=== PATIENT | male | born 1950 | race Caucasian/White ===

== ENCOUNTER → 2020-01-29 | Outpatient (CLI) | payer MEDICARE, OTHER ==
[~2020-01-29] MED LIST: CIPR-17 PO; FINA5TAB6 PO; HYOS0.1216 PO; LISI1TAB PO; LOVA20TA2 PO; PHEN200T27 PO; TERA5CAP10 PO; TMSL.4C PO
--- NOTE | 2020-01-29 11:53 | Diagnostic Imaging Report ---
PROCEDURE: CT abdomen and pelvis without contrast. TECHNIQUE: Multiple contiguous axial images were obtained through the abdomen and pelvis without the use of intravenous contrast. Auto Exposure Controls were utilized during the CT exam to meet ALARA standards for radiation dose reduction. INDICATION: Gross hematuria one week ago. Patient does have history of bladder cancer. COMPARISON: No prior studies are available for comparison. FINDINGS: Lung bases are clear. Liver is unremarkable. Gallbladder is unremarkable. There is no biliary ductal dilatation. The pancreas and spleen are unremarkable. There does appear to be a large duodenal diverticulum in the region of the second and third portion of the duodenum. No discrete adrenal mass is identified. Kidneys are unremarkable. No calculi are seen. There is no hydronephrosis. Aorta is heavily calcified but non-aneurysmal. 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 Bowel loops are normal caliber. Appendix is unremarkable. There is diverticulosis of the sigmoid and descending colon but no evidence of acute diverticulitis. There is wall thickening of the anterior aspect of the bladder. The prostate gland is enlarged. There is a fat-containing left inguinal hernia. Bony structures are nonacute. IMPRESSION: 1. Uncomplicated diverticulosis. 2. Bladder wall thickening. While this could be owing to cystitis, other etiologies cannot be entirely excluded and cystoscopy may be indicated. 3. Prostatomegaly. 4. Fat-containing left inguinal hernia. Dictated by: Dictated on workstation # [id number]
== END ==
LOC: RAD FS 10:18
PROVIDERS: ATTEND Urology
DX: K57.30 Diverticulosis of large intestine without perforation or abscess without bleeding (principal); K40.90 Unilateral inguinal hernia, without obstruction or gangrene, not specified as recurrent; N32.89 Other specified disorders of bladder; N40.1 Benign prostatic hyperplasia with lower urinary tract symptoms; Z85.51 Personal history of malignant neoplasm of bladder
CPT/HCPCS: 74176

== ENCOUNTER → 2021-03-28 | Outpatient (CLI) | payer MEDICARE ==
[2021-03-28 17:56] LABS: HEMATOCRIT 44 % (40-54); MEAN CORPUSCULAR HEMOGLOBIN 30 pg (25-34); MEAN CORPUSCULAR HGB CONC 34 g/dL (32-36); MEAN CORPUSCULAR VOLUME 88 fL (80-99); MEAN PLATELET VOLUME 10.7 fL (9.0-12.2); PLATELET COUNT 162 10^3/uL (130-400); WHITE BLOOD COUNT 9.1 10^3/uL (4.3-11.0)
[2021-03-28 18:05] LABS: POTASSIUM 3.7 MMOL/L (3.6-5.0)
[2021-03-28 18:06] LABS: ALBUMIN 4.2 GM/DL (3.2-4.5); BILIRUBIN,TOTAL 0.3 MG/DL (0.1-1.0); CALCIUM 9.8 MG/DL (8.5-10.1); CREATININE SERUM 0.99 MG/DL (0.60-1.30); TOTAL PROTEIN 6.7 GM/DL (6.4-8.2)
== END ==
LOC: LAB FS 15:53
PROVIDERS: ATTEND Urology
DX: N40.1 Benign prostatic hyperplasia with lower urinary tract symptoms (principal); E29.1 Testicular hypofunction; Z85.51 Personal history of malignant neoplasm of bladder
CPT/HCPCS: 36415; 80053; 84153; 84403; 85027

== ENCOUNTER 2021-05-08 09:13 | Emergency (ER) | payer MEDICARE ==
[~2021-05-08] VITALS: Ht 182 cm; Wt 100.0 kg
--- NOTE | 2021-05-08 09:24 | ED Cough/URI ---
General Stated Complaint: SOB,LIGHTHEADED,COVID + History of Present Illness Date Seen by Provider: May 08, 2021 Time Seen by Provider: 09:19 Initial Comments 70-year-old male presents presents because he does not feel well. Patient reports that symptoms started around 2 weeks ago. The he has some generalized malaise and just does not feel like he wants to eat. He tested positive for Covid about 6 days ago. He does report a history of COPD and has been using his inhaler about every 4 hours. Patient has a minor cough. Patient denies any vomiting. Allergies and Home Medications Allergies Coded Allergies: No Known Drug Allergies (Unverified , 07/31/13) Patient Home Medication List Home Medication List Reviewed: Yes Azithromycin (Azithromycin) 250 Mg Tablet, 250 MG PO UD Prescribed by: MIGUEL DE LA ROSA on 05/08/21 1033 Ciprofloxacin (Cipro Xr 500 Mg Tablet) 500 Mg Tbmp.24hr, 1 TAB PO BID Prescribed by: ZE REESE on 08/04/13 1149 Finasteride (Finasteride) 5 Mg Tablet, 5 MG PO DAILY, (Reported) Entered as Reported by: GERARDO CORONA on 07/31/13 1534 Hctz/Lisinopril (Lisinopril-Hctz 20-12.5 Mg Tab) 1 Each Tablet, 1 TAB PO HS, (Reported) Entered as Reported by: GERARDO CORONA on 07/31/13 1534 Hyoscyamine Sulfate (Levsin 0.125 Mg Tab) 0.125 Mg Tab, 1-2 EACH PO Q4HR PRN Prescribed by: ZE REESE on 08/04/13 1149 Lovastatin (Lovastatin 20 Mg) 20 Mg Tablet, 20 MG PO HS, (Reported) Entered as Reported by: GERARDO CORONA on 07/31/13 1534 Ondansetron (Ondansetron Odt) 4 Mg Tab.rapdis, 4 MG PO Q6H PRN for NAUSEA/VOMITING Prescribed by: MIGUEL DE LA ROSA on 05/08/21 1033 Phenazopyridine Hcl (Pyridium) 200 Mg Tablet, 1 EACH PO TID PRN Prescribed by: ZE REESE on 08/04/13 1149 Prednisone (Prednisone) 20 Mg Tab, 40 MG PO DAILY Prescribed by: MIGUEL DE LA ROSA on 05/08/21 1033 Terazosin Hcl (Hytrin 5MG) 5 Mg Capsule, 5 MG PO HS, (Reported) Entered as Reported by: GERARDO CORONA on 07/31/13 1534 Review of Systems Review of Systems Constitutional: No fever; malaise EENTM: see HPI Respiratory: cough, short of breath Cardiovascular: no symptoms reported Gastrointestinal: No abdominal pain; loss of appetite, nausea; No vomiting Genitourinary: no symptoms reported Musculoskeletal: see HPI Skin: no symptoms reported Psychiatric/Neurological: No Symptoms Reported Hematologic/Lymphatic: No Symptoms Reported Immunological/Allergic: no symptoms reported Physical Exam Vital Signs - First Documented 05/08/21 05/08/21 09:42 11:12 Temp 36.6 Pulse 86 B/P (MAP) 155/87 (109) Pulse Ox 93 O2 Delivery Room Air Capillary Refill : Height: 6'0.00" Weight: 214lbs. oz. 97.691707ew; BMI Method: General Appearance: no apparent distress Neck: full range of motion Respiratory: decreased breath sounds; No wheezing Cardiovascular: normal peripheral pulses, regular rate, rhythm Gastrointestinal: non tender, soft Neurologic/Psychiatric: alert, normal mood/affect, oriented x 3 Skin: normal color, warm/dry Lymphatic: no adenopathy Progress/Results/Core Measures Suspected Sepsis SIRS Temperature: Pulse: Respiratory Rate: Laboratory Tests 05/08/21 09:21: White Blood Count 6.3 Blood Pressure / Mean: Laboratory Tests 05/08/21 09:21: Creatinine 0.84, Platelet Count 139, Total Bilirubin 0.6 Results/Orders Lab Results Laboratory Tests Test 05/08/21 09:21 Range/Units White Blood Count 6.3 4.3-11.0 10^3/uL Red Blood Count 4.92 4.30-5.52 10^6/uL Hemoglobin 14.5 13.3-17.7 g/dL Hematocrit 41 40-54 % Mean Corpuscular Volume 83 80-99 fL Mean Corpuscular Hemoglobin 29 25-34 pg Mean Corpuscular Hemoglobin Concent 36 32-36 g/dL Red Cell Distribution Width 13.2 10.0-14.5 % Platelet Count 139 130-400 10^3/uL Mean Platelet Volume 10.8 9.0-12.2 fL Immature Granulocyte % (Auto) 1 % Neutrophils (%) (Auto) 83 H 42-75 % Lymphocytes (%) (Auto) 10 L 12-44 % Monocytes (%) (Auto) 6 0-12 % Eosinophils (%) (Auto) 0 0-10 % Basophils (%) (Auto) 0 0-10 % Neutrophils # (Auto) 5.2 1.8-7.8 X 10^3 Lymphocytes # (Auto) 0.6 L 1.0-4.0 X 10^3 Monocytes # (Auto) 0.4 0.0-1.0 X 10^3 Eosinophils # (Auto) 0.0 0.0-0.3 10^3/uL Basophils # (Auto) 0.0 0.0-0.1 10^3/uL Immature Granulocyte # (Auto) 0.1 0.0-0.1 10^3/uL Neutrophils % (Manual) 61 % Lymphocytes % (Manual) 8 % Monocytes % (Manual) 7 % Eosinophils % (Manual) 0 % Basophils % (Manual) 0 % Band Neutrophils 21 % Atypical Lymphocytes 3 % Sodium Level 126 L 135-145 MMOL/L Potassium Level 3.7 3.6-5.0 MMOL/L Chloride Level 90 L 98-107 MMOL/L Carbon Dioxide Level 26 21-32 MMOL/L Anion Gap 10 5-14 MMOL/L Blood Urea Nitrogen 18 7-18 MG/DL Creatinine 0.84 0.60-1.30 MG/DL Estimat Glomerular Filtration Rate 90 BUN/Creatinine Ratio 21 Glucose Level 122 H 70-105 MG/DL Calcium Level 8.7 8.5-10.1 MG/DL Corrected Calcium 9.1 8.5-10.1 MG/DL Total Bilirubin 0.6 0.1-1.0 MG/DL Aspartate Amino Transf (AST/SGOT) 181 H 5-34 U/L Alanine Aminotransferase (ALT/SGPT) 99 H 0-55 U/L Alkaline Phosphatase 89 40-136 U/L Total Protein 6.6 6.4-8.2 GM/DL Albumin 3.5 3.2-4.5 GM/DL My Orders Orders - DE LA ROSA,MIGUEL L DO Cbc With Automated Diff (05/08/21 09:25) Comprehensive Metabolic Panel (05/08/21 09:25) Chest 1 View Ap/Pa Only (05/08/21 09:25) Ondansetron Injection (Zofran Injectio (05/08/21 09:30) Ns Iv 1000 Ml (Sodium Chloride 0.9%) (05/08/21 09:25) Albuterol/Ipra Inhalation Soln (Duoneb I (05/08/21 09:30) Methylprednisolone Sod Succ (Solu-Medrol (05/08/21 09:25) Svn Small Volume Nebulizer (05/08/21 09:25) Manual Differential (05/08/21 09:21) Medications Given in ED Current Medications Medications Dose Ordered Sig/Josue Route Start Time Stop Time Status Last Admin Dose Admin Albuterol/ Ipratropium 3 ml ONCE ONCE INH 05/08/21 09:30 05/08/21 09:31 DC 05/08/21 09:35 3 ML Ondansetron HCl 4 mg ONCE ONCE IVP 05/08/21 09:30 05/08/21 09:31 DC 05/08/21 09:35 4 MG Vital Signs/I&O 05/08/21 05/08/21 09:42 11:12 Temp 36.6 Pulse 86 B/P (MAP) 155/87 (109) 164/74 Pulse Ox 93 O2 Delivery Room Air Room Air Capillary Refill : Progress Note : Progress Note Patient maintain his oxygen in the low to mid 90s while in the ER. Patient continues to be a pack per day smoker with COPD. He does have a slight decrease in his sodium of 126. I did give him 1 L of fluids while here in the ER. Chest x-ray shows a mild bilateral pneumonia. Due to his history of COPD and Covid I will start him with some steroid and azithromycin with COPD. Recommend he monitor his oxygen. He should return to the ER if symptoms worsen. Patient should follow-up with a primary care provider in a couple days for recheck. He is stable and discharged home Diagnostic Imaging Diagonstic Imaging: Xray Plain Films/CT/US/NM/MRI: chest Comments Date of Exam:05/08/21 CHEST 1 VIEW AP/PA ONLY CLINICAL INDICATION: Patient is Covid positive with cough and shortness of breath. EXAM: Portable chest x-ray, upright view. COMPARISON: None. FINDINGS: Lungs/pleura: There are ill-defined curvilinear and amorphous groundglass airspace opacities throughout both lungs with some sparing of both lung bases. There is no pneumothorax. There is no pleural effusion. Mediastinum: Unremarkable. Pulmonary vasculature: Unremarkable. Heart: Unremarkable. Bones/extrathoracic soft tissue: There are degenerative spurs involving the thoracic spine. IMPRESSION: There is concern for subtle bilateral lung infiltrates. Reviewed: Reviewed by Me, Reviewed/Discussed Departure Impression Primary Impression: Pneumonia due to COVID-19 virus Additional Impressions: History of COPD Hyponatremia Disposition: HOME, SELF-CARE Condition: Stable Departure-Patient Inst. Referrals: MARY ABDALLA MD (PCP/Family) Primary Care Physician Patient Instructions: COVID-19 (DC), Chronic Obstructive Pulmonary Disease (COPD) (DC) Add. Discharge Instructions: Follow-up with your primary care provider in 3 to 4 days for recheck of your symptoms Monitor your oxygen and if it consistently gets below 88% return to the ER or your primary care provider Return to the ER with any other concerns Scripts Prednisone (Prednisone) 20 Mg Tab 40 MG PO DAILY, #6 TAB 0 Refills start 05/09/21 Prov: MIGUEL DE LA ROSA DO 05/08/21 Ondansetron (Ondansetron Odt) 4 Mg Tab.rapdis 4 MG PO Q6H PRN for NAUSEA/VOMITING, #20 TAB 0 Refills Prov: MIGUEL DE LA ROSA DO 05/08/21 Azithromycin (Azithromycin) 250 Mg Tablet 250 MG PO UD, #6 TAB TAKE 2 TABLETS ON DAY ONE THEN TAKE 1 TABLET DAILY FOR FOUR MORE DAYS Prov: MIGUEL DE LA ROSA DO 05/08/21 MIGUEL DE LA ROSA DO May 08, 2021 09:23
[2021-05-08] MEDS ORDERED: NS IV 1000 ML 1,000 ML IV STA (09:25)
[2021-05-08] MEDS ORDERED: methylPREDNISolone 125 MG (Solu-MEDROL) VIAL IV STA (09:25)
[2021-05-08] MEDS ORDERED: RT-ALBUTEROL/IPRATROPIUM 3 ML (DUONEB) VIAL INH ONE (09:30)
[2021-05-08] MEDS ORDERED: ONDANSETRON 4 MG/2 ML (SDV) Z0FRAN IVP ONE (09:30)
--- NOTE | 2021-05-08 09:46 | Diagnostic Imaging Report ---
CLINICAL INDICATION: Patient is Covid positive with cough and shortness of breath. EXAM: Portable chest x-ray, upright view. COMPARISON: None. FINDINGS: Lungs/pleura: There are ill-defined curvilinear and amorphous groundglass airspace opacities throughout both lungs with some sparing of both lung bases. There is no pneumothorax. There is no pleural effusion. Mediastinum: Unremarkable. Pulmonary vasculature: Unremarkable. Heart: Unremarkable. Bones/extrathoracic soft tissue: There are degenerative spurs involving the thoracic spine. IMPRESSION: There is concern for subtle bilateral lung infiltrates. The report was faxed to Infection Control by [email or web address]@9:45 AM. Dictated by: Dictated on workstation # [id number]
[2021-05-08 09:55] LABS: HEMATOCRIT 41 % (40-54); HEMOGLOBIN 14.5 g/dL (13.3-17.7); MEAN CORPUSCULAR HEMOGLOBIN 29 pg (25-34); MEAN CORPUSCULAR HGB CONC 36 g/dL (32-36); MEAN CORPUSCULAR VOLUME 83 fL (80-99); WHITE BLOOD COUNT 6.3 10^3/uL (4.3-11.0)
[2021-05-08 09:56] LABS: BASOPHILS % (AUTO) 0 % (0-10); EOSINOPHILS % (AUTO) 0 % (0-10); LYMPHOCYTES # (AUTO) 0.6 X 10^3 (1.0-4.0); LYMPHOCYTES % (AUTO) 10 % (12-44); MEAN PLATELET VOLUME 10.8 fL (9.0-12.2); MONOCYTES # (AUTO) 0.4 X 10^3 (0.0-1.0); MONOCYTES % (AUTO) 6 % (0-12); NEUTROPHILS # (AUTO) 5.2 X 10^3 (1.8-7.8); NEUTROPHILS % (AUTO) 83 % (42-75); PLATELET COUNT 139 10^3/uL (130-400)
[2021-05-08 10:04] LABS: CREATININE SERUM 0.84 MG/DL (0.60-1.30); POTASSIUM 3.7 MMOL/L (3.6-5.0)
[2021-05-08 10:05] LABS: ALBUMIN 3.5 GM/DL (3.2-4.5); BILIRUBIN,TOTAL 0.6 MG/DL (0.1-1.0); CALCIUM 8.7 MG/DL (8.5-10.1); TOTAL PROTEIN 6.6 GM/DL (6.4-8.2)
[2021-05-08 10:12] LABS: ATYPICAL LYMPHOCYTES 3 %; BAND NEUTROPHILS 21 %; BASOPHILS % (MANUAL) 0 %; EOSINOPHILS % (MANUAL) 0 %; LYMPHOCYTES % (MANUAL) 8 %; MONOCYTES % (MANUAL) 7 %; NEUTROPHILS % (MANUAL) 61 %
[2021-05-08] MEDS ORDERED: PRD20T PO (10:33)
[2021-05-08] MEDS ORDERED: ONDA4TAB11 PO ×2 (10:33→19:04)
[2021-05-08] MEDS ORDERED: AZIT250T12 PO (10:33)
[2021-05-08 11:12] VITALS: BP 164/74
[2021-05-08] MEDS ORDERED: oxygen (19:02)
[2021-05-08] MEDS ORDERED: DEXA6TAB6 PO (19:22)
[2021-05-09] MEDS ORDERED: LYSI500T10 PO (12:27)
[2021-05-09] MEDS ORDERED: ASCO-262 PO (12:27)
[2021-05-09] MEDS ORDERED: OMEG-160 PO (12:27)
[2021-05-09] MEDS ORDERED: LISI1TAB48 PO (12:27)
[2021-05-09] MEDS ORDERED: IBUP-2473 PO (12:27)
[2021-05-09] MEDS ORDERED: CHOL20003 PO (12:27)
[2021-05-09] MEDS ORDERED: UBID100C44 PO (12:27)
[2021-05-09] MEDS ORDERED: ZINC50TA58 PO (12:27)
[2021-05-09] MEDS ORDERED: TERA5CAP10 PO (12:27)
[2021-05-09] MEDS ORDERED: FINA5TAB6 PO (12:27)
[2021-05-09] MEDS ORDERED: ROSU40TA23 PO (12:27)
[2021-05-12] MEDS ORDERED: RT-ALBUINH IH (12:19)
[2021-05-12] MEDS ORDERED: DEXA6TAB6 PO (12:19)
== END 2021-05-08 10:45 | disposition home or self-care (01) ==
LOC: EDUNIT# 09:13 → ER FS 09:15
DX: U07.1 COVID-19 (principal); J12.82 Pneumonia due to coronavirus disease 2019; J44.9 Chronic obstructive pulmonary disease, unspecified; E87.1 Hypo-osmolality and hyponatremia; F17.210 Nicotine dependence, cigarettes, uncomplicated; Z79.899 Other long term (current) drug therapy
CPT/HCPCS: 36415; 71045; 80053; 85007; 85027

== ENCOUNTER 2021-05-08 17:10 | Inpatient (IN) | payer MEDICARE ==
[~2021-05-08] VITALS: Ht 183 cm; Wt 99.2 kg
[~2021-05-08 17:10] MED LIST changes: +AZIT250T12 PO; +ONDA4TAB11 PO; +PRD20T PO
--- NOTE | 2021-05-08 17:56 | ED Dyspnea ---
General Stated Complaint: COVID POSITIVE Source of Information: Patient Exam Limitations: No Limitations (JENNIFER SAMUELS MD) History of Present Illness Date Seen by Provider: May 08, 2021 Time Seen by Provider: 17:43 Initial Comments Hardik is a 70-year-old male with a history of hypertension who presents to the emergency department known Covid positive diagnosed with pneumonia earlier this morning. States that he tested positive for Covid last week on Saturday, 6 days ago. He had been sick for about a week prior to that. He states his cough is occasionally productive. No fevers or chills. He has lost taste and smell. He is not really lightheaded or dizzy he does not have any nausea or diarrhea. No swelling in his calves or cramping. He was seen at [facility] early this morning, diagnosed with pneumonia started on medications. His daughter has been checking his oxygen saturation at home throughout the day and states that he has never gotten above 88, dropping as low as 83. On arrival to the emergency department he is at 83% on room air. He is a little tachypneic at 26 to 28 breaths/min. Does not appear to be in significant distress. All other review of systems reviewed and negative except as stated. Timing/Duration: 24 Hours Severity: Moderate Prior Episodes/Possible Cause: Illness Exposure Modifying Factors: Worse With Coughing Associated Symptoms: Other (Short of breath) (JENNIFER SAMUELS MD) Allergies and Home Medications Allergies Coded Allergies: No Known Drug Allergies (Unverified , 07/31/13) Patient Home Medication List Home Medication List Reviewed: Yes (JENNIFER SAMUELS MD) Azithromycin (Azithromycin) 250 Mg Tablet, 250 MG PO UD Prescribed by: MIGUEL DE LA ROSA on 05/08/21 1033 Ciprofloxacin (Cipro Xr 500 Mg Tablet) 500 Mg Tbmp.24hr, 1 TAB PO BID Prescribed by: ZE REESE on 08/04/13 1149 Dexamethasone (Decadron) 6 Mg Tablet, 6 MG PO DAILY Prescribed by: MARCIAL LEDESMA on 05/08/21 192 Finasteride (Finasteride) 5 Mg Tablet, 5 MG PO DAILY, (Reported) Entered as Reported by: GERARDO CORONA on 07/31/13 1534 Hctz/Lisinopril (Lisinopril-Hctz 20-12.5 Mg Tab) 1 Each Tablet, 1 TAB PO HS, (Reported) Entered as Reported by: GERARDO CORONA on 07/31/13 1534 Hyoscyamine Sulfate (Levsin 0.125 Mg Tab) 0.125 Mg Tab, 1-2 EACH PO Q4HR PRN Prescribed by: ZE REESE on 08/04/13 1149 Lovastatin (Lovastatin 20 Mg) 20 Mg Tablet, 20 MG PO HS, (Reported) Entered as Reported by: GERARDO CORONA on 07/31/13 1534 Ondansetron (Ondansetron Odt) 4 Mg Tab.rapdis, 4 MG PO Q6H PRN for NAUSEA/VO MITING Prescribed by: MIGUEL DE LA ROSA on 05/08/21 1033 Ondansetron (Ondansetron Odt) 4 Mg Tab.rapdis, 4 MG PO Q6H PRN for NAUSEA/VOMITING Prescribed by: MARCIAL LEDESMA on 05/08/21 190 Phenazopyridine Hcl (Pyridium) 200 Mg Tablet, 1 EACH PO TID PRN Prescribed by: ZE REESE on 08/04/13 1149 Prednisone (Prednisone) 20 Mg Tab, 40 MG PO DAILY Prescribed by: MIGUEL DE LA ROSA on 05/08/21 1033 Terazosin Hcl (Hytrin 5MG) 5 Mg Capsule, 5 MG PO HS, (Reported) Entered as Reported by: GERARDO CORONA on 07/31/13 1534 [oxygen] 2-6 LPM CONC, 2-6 L NA DAILY Prescribed by: MARCIAL LEDESMA on 05/08/21 190 Review of Systems Review of Systems Constitutional: see HPI EENTM: no symptoms reported Respiratory: cough, dyspnea on exertion, phlegm, short of breath Cardiovascular: no symptoms reported Gastrointestinal: no symptoms reported Genitourinary: no symptoms reported Musculoskeletal: no symptoms reported Skin: no symptoms reported Psychiatric/Neurological: No Symptoms Reported (JENNIFER SAMUELS MD) All Other Systems Reviewed Negative Unless Noted: Yes (JENNIFER SAMUELS MD) Past Lrrbnmq-Vfiofe-Pbtlmk Hx Patient Social History Tobacco Use?: No Use of E-Cig and/or Vaping dev: No (MARCIAL LEDESMA) Physical Exam Vital Signs Vital Signs - First Documented 05/08/21 17:34 Temp 37.2 Pulse 85 Resp 26 B/P (MAP) 141/96 (111) Pulse Ox 92 O2 Delivery Nasal Cannula O2 Flow Rate 4.00 (MARCIAL LEDESMA) Vital Signs Capillary Refill : (JENNIFER SAMUELS MD) Height, Weight, BMI Height: 6'0.00" Weight: 214lbs. oz. 97.628711or; 30.00 BMI Method: General Appearance: No Apparent Distress, WD/WN HEENT: PERRL/EOMI Neck: Normal Inspection Respiratory: Lungs Clear, Normal Breath Sounds, No Accessory Muscle Use, No Respiratory Distress, Other (Slightly tachypneic 24 to 26 breaths a minute; sats 93% on 4 L per nasal cannula) Cardiovascular: Regular Rate, Rhythm, Normal Peripheral Pulses Gastrointestinal: Normal Bowel Sounds, Non Tender, Soft Extremity: Normal Capillary Refill, Normal Inspection, Normal Range of Motion, Non Tender, No Calf Tenderness Neurologic/Psychiatric: Alert, Oriented x3, No Motor/Sensory Deficits, Normal Mood/Affect Skin: Normal Color, Warm/Dry (JENNIFER SAMUELS MD) Focused Exam Lactate Level 05/08/21 17:55: Lactic Acid Level 1.38 (MARCIAL LEDESMA) Lactic Acid Level Laboratory Tests Test 05/08/21 17:55 Lactic Acid Level 1.38 MMOL/L (0.50-2.00) (MARCIAL LEDESMA) Progress/Results/Core Measures Results/Orders Lab Results Laboratory Tests Test 05/08/21 17:55 Range/Units White Blood Count 4.7 4.3-11.0 10^3/uL Red Blood Count 4.94 4.30-5.52 10^6/uL Hemoglobin 14.3 13.3-17.7 g/dL Hematocrit 42 40-54 % Mean Corpuscular Volume 84 80-99 fL Mean Corpuscular Hemoglobin 29 25-34 pg Mean Corpuscular Hemoglobin Concent 34 32-36 g/dL Red Cell Distribution Width 13.2 10.0-14.5 % Platelet Count 157 130-400 10^3/uL Mean Platelet Volume 11.4 9.0-12.2 fL Immature Granulocyte % (Auto) 1 % Neutrophils (%) (Auto) 87 H 42-75 % Lymphocytes (%) (Auto) 7 L 12-44 % Monocytes (%) (Auto) 5 0-12 % Eosinophils (%) (Auto) 0 0-10 % Basophils (%) (Auto) 0 0-10 % Neutrophils # (Auto) 4.1 1.8-7.8 10^3/uL Lymphocytes # (Auto) 0.3 L 1.0-4.0 10^3/uL Monocytes # (Auto) 0.2 0.0-1.0 10^3/uL Eosinophils # (Auto) 0.0 0.0-0.3 10^3/uL Basophils # (Auto) 0.0 0.0-0.1 10^3/uL Immature Granulocyte # (Auto) 0.1 0.0-0.1 10^3/uL Neutrophils % (Manual) 89 % Lymphocytes % (Manual) 7 % Monocytes % (Manual) 4 % Gunnar Cells MODERATE Prothrombin Time 13.0 12.2-14.7 SEC INR Comment 0.9 0.8-1.4 Activated Partial Thromboplast Time 40 H 24-35 SEC D-Dimer 0.96 H 0.00-0.49 UG/ML Sodium Level 129 L 135-145 MMOL/L Potassium Level 3.6 3.6-5.0 MMOL/L Chloride Level 95 L 98-107 MMOL/L Carbon Dioxide Level 24 21-32 MMOL/L Anion Gap 10 5-14 MMOL/L Blood Urea Nitrogen 20 H 7-18 MG/DL Creatinine 0.80 0.60-1.30 MG/DL Estimat Glomerular Filtration Rate 95 BUN/Creatinine Ratio 25 Glucose Level 163 H 70-105 MG/DL Lactic Acid Level 1.38 0.50-2.00 MMOL/L Calcium Level 8.9 8.5-10.1 MG/DL C-Reactive Protein High Sensitivity 6.23 H 0.00-0.50 MG/DL Procalcitonin 0.06 <0.10 NG/ML (MARCIAL LEDESMA) My Orders Orders - MARCIAL LEDESMA Ct Angio Chest W (05/08/21 18:50) Dexamethasone Injection (Decadron Inje (05/08/21 19:30) Iohexol Injection (Omnipaque 350 Mg/Ml 1 (05/08/21 19:45) Received Contrast (Hold Metformin- Contr (05/08/21 19:45) Ns (Ivpb) (Sodium Chloride 0.9% Ivpb Bag (05/08/21 19:45) (MARCIAL LEDESMA) Medications Given in ED Current Medications Medications Dose Ordered Sig/Josue Route Start Time Stop Time Status Last Admin Dose Admin Dexamethasone Sodium Phosphate 6 mg ONCE ONCE IV 05/08/21 19:30 05/08/21 19:31 DC 05/08/21 19:46 6 MG Iohexol 100 ml ONCE ONCE IV 05/08/21 19:45 05/08/21 19:46 DC 05/08/21 19:40 82 ML Sodium Chloride 100 ml ONCE ONCE IV 05/08/21 19:45 05/08/21 19:46 DC 05/08/21 19:40 80 ML (MARCIAL LEDESMA) Vital Signs/I&O 05/08/21 17:34 Temp 37.2 Pulse 85 Resp 26 B/P (MAP) 141/96 (111) Pulse Ox 92 O2 Delivery Nasal Cannula O2 Flow Rate 4.00 (MARCIAL LEDESMA) Progress Progress Note #1: Time: 18:54 Progress Note Assumed care of the patient at shift change. I agree with the documented history and physical exam. Reviewed the labs with the patient. Will obtain a CT angiogram to rule out pulmonary embolism and set him up for home O2. Patient is maintaining in the low 90s on 4 L by nasal cannula. This is probably acceptable given his history of COPD. Patient was offered the opportunity to go home on oxygen after the CT angio of the chest. Patient thought this would be a great plan and is able to speak in full sentences and does not appear breathless. [facility] was contacted and will call us back with a provider. 1900: FRANCESCA called us back and we faxed over an order and facesheet. Progress Note #2: Time: 20:18 Progress Note After the patient stood up to go to the bathroom his oxygen saturations dipped down to 84% on 4 L. Nursing trended up to 6 L. He would probably benefit from BiPAP or Vapotherm. We discussed not to stay in the hospital and he is in agreement. (MARCIAL LEDESMA) Diagnostic Imaging Diagonstic Imaging: Xray Plain Films/CT/US/NM/MRI: chest Comments [facility] [place], [place] NAME: HARDIK MORLEY [facility] REC#: [id number] PT STATUS: DEP ER : 1950 PHYSICIAN: MIGUEL DE LA ROSA DO ADMIT DATE: 05/08/21/ER FS Signed Date of Exam:05/08/21 CHEST 1 VIEW AP/PA ONLY CLINICAL INDICATION: Patient is Covid positive with cough and shortness of breath. EXAM: Portable chest x-ray, upright view. COMPARISON: None. FINDINGS: Lungs/pleura: There are ill-defined curvilinear and amorphous groundglass airspace opacities throughout both lungs with some sparing of both lung bases. There is no pneumothorax. There is no pleural effusion. Mediastinum: Unremarkable. Pulmonary vasculature: Unremarkable. Heart: Unremarkable. Bones/extrathoracic soft tissue: There are degenerative spurs involving the thoracic spine. IMPRESSION: There is concern for subtle bilateral lung infiltrates. The report was faxed to Infection Control by [facility]@9:45 AM. Dictated by: Dictated on workstation # [id number] Dict: 05/08/2142 Trans: 05/08/211726 [id number] Interpreted by: VALE SEVILLA MD Electronically signed by: VALE SEVILLA MD 05/08/211726 Reviewed: Reviewed by Az Diagonstic Imaging: CT (angio) Plain Films/CT/US/NM/MRI: chest Comments [facility] [place] NAME: HARDIK MORLEY [facility] REC#: [id number] PT STATUS: [facility] ER : 1950 PHYSICIAN: MARCIAL LEDESMA MD ADMIT DATE: 05/08/21/ER Draft Date of Exam:05/08/21 CT ANGIO CHEST W PROCEDURE: CT angiography of the chest with contrast. TECHNIQUE: Multiple contiguous axial images were obtained through the chest after uneventful bolus administration of intravenous contrast. 3D reconstructed CTA MIP acquisitions were also performed. Auto Exposure Controls were utilized during the CT exam to meet ALARA standards for radiation dose reduction. DATE: May 08, 2021. COMPARISON: Chest radiograph May 08, 2021. INDICATION: 70-year-old male, shortness of breath. COVID positive. FINDINGS: There is respiratory motion artifact present. There is multifocal patchy bilateral alveolar consolidation including areas of groundglass type consolidation. There are cystic changes in the upper lobes likely relating to background findings of emphysema. There is a 4 mm pleurally based left upper lobe pulmonary nodule on axial image 74. There is no pneumothorax. There is no pleural effusion. The central airways are patent. There is no identified pulmonary embolus. The heart is not enlarged. There is no pericardial effusion. There are coronary artery calcifications and additional areas of atherosclerotic disease. There are mildly enlarged right hilar and subcarinal lymph nodes measuring up to approximately 12 mm in short axis. There is no identified abnormally enlarged axillary lymph node specifically meeting CT size criteria for adenopathy. There is nonspecific bilateral perinephric stranding. There is nonspecific thickening of the left adrenal gland. The wall of the stomach appears thick which may relate to under distention. There are multilevel degenerative changes of the spine. There is no identified acute bony abnormality. IMPRESSION: CT CHEST. 1. Multifocal patchy bilateral lung consolidation which would be consistent with history of COVID 19 infection and multifocal pneumonia/pneumonitis. 2. No identified pulmonary embolus. 3. Enlarged right hilar and subcarinal lymph nodes most likely reactive to the airspace consolidative process. Dictated on workstation # [id number] Dict: 05/08/211948 Trans: 05/08/211955 [facility] [id number] Interpreted by: SKIP PECK MD Electronically signed by: Reviewed: Reviewed by Me (MARCIAL LEDESMA) Departure Communication (Admissions) Time/Spoke to Admitting Phy: 20:15 Discussed the case with Dr. Garber and he agrees to placing the patient on the floor with Vapotherm more BiPAP. He agrees the patient is probably outside the window of active COVID-19 infection. (MARCIAL LEDESMA) Impression Primary Impression: Acute hypoxemic respiratory failure due to COVID-19 Additional Impression: History of COPD Disposition: ADMITTED INPATIENT Condition: Stable Admissions Decision to Admit Reason: Admit from ER (General) Decision to Admit/Date: May 08, 2021 Time/Decision to Admit Time: 20:15 (MARCIAL LEDESMA) Departure-Patient Inst. Referrals: SELF,MARY MD (PCP/Family) Primary Care Physician Add. Discharge Instructions: Wear the oxygen 2 to 6 L/min by nasal cannula as necessary to maintain an oxygen saturation above 88%. Decadron 6 mg daily for the next 10 days. Discontinue the prednisone. Drink plenty fluids. Tylenol 1000 mg every 8 hours necessary for fever or pain. Ondansetron 1 tablet every 6 hours necessary for nausea or vomiting. Follow-up with your primary care doctor. Scripts Dexamethasone (Decadron) 6 Mg Tablet 6 MG PO DAILY for 10 Days, #10 TAB 0 Refills Prov: MARCIAL LEDESMA 05/08/21 Ondansetron (Ondansetron Odt) 4 Mg Tab.rapdis 4 MG PO Q6H PRN for NAUSEA/VOMITING, #8 TAB 0 Refills Prov: MARCIAL LEDESMA 05/08/21 [oxygen] 2-6 LPM CONC No Conflict Check 2-6 L NA DAILY for Shortness of Breath for 99 Days, #1 EACH 0 Refills For COVID 19 Prov: MARCIAL LEDESMA 05/08/21 Copy Copies To 1: MARY ABDALLA MD, KATHRYN M MD May 08, 2021 17:56 MARCIAL LEDESMA May 08, 2021 18:58
[2021-05-08] MEDS ORDERED: NS IV 1000 ML 1,000 ML IV SCH (18:00)
[2021-05-08 18:05] LABS: BASOPHILS % (AUTO) 0 % (0-10); EOSINOPHILS % (AUTO) 0 % (0-10); HEMATOCRIT 42 % (40-54); HEMOGLOBIN 14.3 g/dL (13.3-17.7); LYMPHOCYTES # (AUTO) 0.3 10^3/uL (1.0-4.0); LYMPHOCYTES % (AUTO) 7 % (12-44); MEAN CORPUSCULAR HEMOGLOBIN 29 pg (25-34); MEAN CORPUSCULAR HGB CONC 34 g/dL (32-36); MEAN CORPUSCULAR VOLUME 84 fL (80-99); MEAN PLATELET VOLUME 11.4 fL (9.0-12.2); MONOCYTES # (AUTO) 0.2 10^3/uL (0.0-1.0); MONOCYTES % (AUTO) 5 % (0-12); NEUTROPHILS # (AUTO) 4.1 10^3/uL (1.8-7.8); NEUTROPHILS % (AUTO) 87 % (42-75); PLATELET COUNT 157 10^3/uL (130-400); WHITE BLOOD COUNT 4.7 10^3/uL (4.3-11.0)
[2021-05-08 18:20] LABS: FIBRIN DEGRADATION PRODUCTS 0.96 UG/ML (0.00-0.49); INR 0.9 (0.8-1.4); POTASSIUM 3.6 MMOL/L (3.6-5.0)
[2021-05-08 18:21] LABS: CALCIUM 8.9 MG/DL (8.5-10.1)
[2021-05-08 18:26] LABS: CREATININE SERUM 0.8 MG/DL (0.60-1.30)
[2021-05-08 18:36] LABS: BURR CELLS MODERATE; LYMPHOCYTES % (MANUAL) 7 %; MONOCYTES % (MANUAL) 4 %; NEUTROPHILS % (MANUAL) 89 %
[2021-05-08] MEDS ORDERED: oxygen (19:02)
[2021-05-08] MEDS ORDERED: ONDA4TAB11 PO (19:04)
[2021-05-08] MEDS ORDERED: DEXA6TAB6 PO (19:22)
[2021-05-08] MEDS ORDERED: IOHEXOL 350 MG/ML 100 ML (OMNIPAQUE 350) VIAL IV ONE (19:45)
[2021-05-08] MEDS ORDERED: NS 100 ML (IVPB) BAG IV ONE (19:45)
[2021-05-08] MEDS ORDERED: HOLD METFORMIN - RECEIVED CONTRAST 20 ML VIAL IV SCH (19:45)
--- NOTE | 2021-05-08 19:58 | Diagnostic Imaging Report ---
PROCEDURE: CT angiography of the chest with contrast. TECHNIQUE: Multiple contiguous axial images were obtained through the chest after uneventful bolus administration of intravenous contrast. 3D reconstructed CTA MIP acquisitions were also performed. Auto Exposure Controls were utilized during the CT exam to meet ALARA standards for radiation dose reduction. DATE: May 08, 2021. COMPARISON: Chest radiograph May 08, 2021. INDICATION: 70-year-old male, shortness of breath. COVID positive. FINDINGS: There is respiratory motion artifact present. There is multifocal patchy bilateral alveolar consolidation including areas of groundglass type consolidation. There are cystic changes in the upper lobes likely relating to background findings of emphysema. There is a 4 mm pleurally based left upper lobe pulmonary nodule on axial image 74. There is no pneumothorax. There is no pleural effusion. The central airways are patent. There is no identified pulmonary embolus. The heart is not enlarged. There is no pericardial effusion. There are coronary artery calcifications and additional areas of atherosclerotic disease. There are mildly enlarged right hilar and subcarinal lymph nodes measuring up to approximately 12 mm in short axis. There is no identified abnormally enlarged axillary lymph node specifically meeting CT size criteria for adenopathy. There is nonspecific bilateral perinephric stranding. There is nonspecific thickening of the left adrenal gland. The wall of the stomach appears thick which may relate to under distention. There are multilevel degenerative changes of the spine. There is no identified acute bony abnormality. IMPRESSION: CT CHEST. 1. Multifocal patchy bilateral lung consolidation which would be consistent with history of COVID 19 infection and multifocal pneumonia/pneumonitis. 2. No identified pulmonary embolus. 3. Enlarged right hilar and subcarinal lymph nodes most likely reactive to the airspace consolidative process. Dictated by: Dictated on workstation # [id number]
[2021-05-08 21:11] VITALS: BP 162/82
[2021-05-08] MEDS ORDERED: ONDANSETRON 4 MG/2 ML (SDV) Z0FRAN IV PRN (21:45)
[2021-05-08] MEDS ORDERED: LACTATED RINGERS 1,000 ML IV SCH (21:45)
[2021-05-09] VITALS (7 sets, daily range): BP systolic 125–161; BP diastolic 71–96
[2021-05-09] MEDS ORDERED: RT-ALBUTEROL HFA 8.5 GM INHALER IH PRN (01:30)
[2021-05-09] MEDS: RT-ALBUTEROL HFA 8.5 GM INHALER IH SCH ×4 (03:09→22:06)
--- NOTE | 2021-05-09 05:56 | History & Physical-Hospitalist ---
History of Present Illness HPI/Chief Complaint CC: Acute hypoxic respiratory failure HPI: This is a 70yoWM clinic Pt of Dr. Salgado who currently smokes, who is unvaccinated and was diagnosed with Covid-19 pneumonia one week ago after being ill for one week before that. ABG showed significant hypoxemia. Pt was placed on Vapotherm and remains so at 35 liters and 60%. We will heplock his IV fluids, start Advair and will be closely monitoring patient. Source: patient Exam Limitations: no limitations Date Seen 05/09/21 Time Seen by a Provider: 09:00 Attending Physician Paulie Garber MD PCP Som Salgado MD Referring Physician Date of Admission May 08, 2021 at 20:15 Home Medications & Allergies Home Medications Reviewed patient Home Medication Reconciliation performed by pharmacy medication reconciliations audio video technician and/or nursing. Patients Allergies have been reviewed. Allergies Allergies Coded Allergies No Known Drug Allergies (Unverified07/31/13) Past Xswpues-Ywanmg-Vagvzt Hx Patient Social History Marrital Status: Employed/Student: employed Tobacco Use?: Yes Tobacco type used: Cigarettes Smoking Status: Current Everyday Smoker Smokeless Tobacco Frequency: Never a User Use of E-Cig and/or Vaping dev: No Substance use?: No Alcohol Use?: Yes Alcohol type: Beer Alcohol Frequency: Couple times a week Pt feels they are or have been: No Immunizations Up To Date Tetanus Booster (TDap): Unknown Current Status Advance Directives: No Communicates: Verbally Primary Language: B[place] Preferred Spoken Language: [place] Is interpretation needed?: No Past Medical History COPD Hypertension Benign Prostatic Hyperpl Gastroesophageal Reflux Review of Systems Constitutional: see HPI, dizziness, fever, malaise, weakness EENTM: no symptoms reported Respiratory: cough, dyspnea on exertion Cardiovascular: no symptoms reported Gastrointestinal: no symptoms reported Genitourinary: no symptoms reported Musculoskeletal: no symptoms reported Skin: no symptoms reported Psychiatric/Neurological: No Symptoms Reported All Other Systems Reviewed Negative Unless Noted: Yes Physical Exam Physical Exam Vital Signs Vital Signs - First Documented 05/08/21 05/08/21 17:34 21:45 Temp 37.2 Pulse 85 Resp 26 B/P (MAP) 141/96 (111) Pulse Ox 92 O2 Delivery Nasal Cannula O2 Flow Rate 4.00 FiO2 65 Capillary Refill : Less Than 3 Seconds Height, Weight, BMI Height: 6'0.00" Weight: 214lbs. oz. 97.347246xa; 29.62 BMI Method: General Appearance: No Apparent Distress, Chronically ill Eyes: Right Eye Normal Inspection, Right Eye PERRL HEENT: PERRL/EOMI, Normal ENT Inspection, Pharynx Normal, Moist Mucous Membranes Neck: Full Range of Motion, Normal Inspection, Non Tender Respiratory: Chest Non Tender, No Accessory Muscle Use, No Respiratory Distress, Crackles, Decreased Breath Sounds, Wheezing Cardiovascular: Regular Rate, Rhythm, No Edema, No Gallop, No JVD, No Murmur, Normal Peripheral Pulses Gastrointestinal: Normal Bowel Sounds, No Organomegaly, No Pulsatile Mass, Non Tender, Soft Back: Normal Inspection, No CVA Tenderness, No Vertebral Tenderness Extremity: Normal Capillary Refill, Normal Inspection, Normal Range of Motion, Non Tender, No Calf Tenderness, No Pedal Edema Neurologic/Psychiatric: Alert, Oriented x3, No Motor/Sensory Deficits, Normal Mood/Affect Skin: Normal Color, Warm/Dry Lymphatic: No Adenopathy Results Results/Procedures Labs Laboratory Tests 05/08/21 17:55 05/09/21 05:59 Patient resulted labs reviewed. Assessment/Plan Admission Diagnosis Assessment: Acute hypoxic respiratory failure COVID-19 pneumonia Exacerbation COPD Current smoker BPH Hypertension Plan: Supportive care Oxygen COVID-19 protocol DVT prophylaxis Admission Status: Inpatient Order (span 2 midnights) Reason for Inpatient Admission: Respiratory failure Diagnosis/Problems Diagnosis/Problems (1) Acute hypoxemic respiratory failure due to COVID-19 Status: Acute (2) Pneumonia due to COVID-19 virus Status: Acute (3) Acute and chronic respiratory failure (4) History of COPD Status: Acute (5) Hyponatremia Status: Acute KEON GAYLE DO May 09, 2021 05:56
[2021-05-09 06:13] LABS: BASOPHILS % (AUTO) 0 % (0-10); EOSINOPHILS % (AUTO) 0 % (0-10); HEMATOCRIT 37 % (40-54); HEMOGLOBIN 12.9 g/dL (13.3-17.7); LYMPHOCYTES # (AUTO) 0.6 10^3/uL (1.0-4.0); LYMPHOCYTES % (AUTO) 8 % (12-44); MEAN CORPUSCULAR HEMOGLOBIN 30 pg (25-34); MEAN CORPUSCULAR HGB CONC 35 g/dL (32-36); MEAN CORPUSCULAR VOLUME 85 fL (80-99); MEAN PLATELET VOLUME 11.2 fL (9.0-12.2); MONOCYTES # (AUTO) 0.5 10^3/uL (0.0-1.0); MONOCYTES % (AUTO) 6 % (0-12); NEUTROPHILS % (AUTO) 84 % (42-75); PLATELET COUNT 165 10^3/uL (130-400); WHITE BLOOD COUNT 7.1 10^3/uL (4.3-11.0)
[2021-05-09 06:35] LABS: POTASSIUM 3.3 MMOL/L (3.6-5.0)
[2021-05-09 06:36] LABS: CALCIUM 8.5 MG/DL (8.5-10.1)
[2021-05-09 06:37] LABS: TOTAL PROTEIN 5.6 GM/DL (6.4-8.2)
[2021-05-09 06:39] LABS: BILIRUBIN,TOTAL 0.6 MG/DL (0.1-1.0)
[2021-05-09 06:41] LABS: CREATININE SERUM 0.8 MG/DL (0.60-1.30)
[2021-05-09 06:43] LABS: BILIRUBIN,DIRECT 0.3 MG/DL (0.0-0.3); BILIRUBIN,INDIRECT 0.3 MG/DL
[2021-05-09 07:27] LABS: ABG BASE EXCESS 2.6 MMOL/L (-2.5-2.5); ABG OXYGEN SATURATION 92 % (94-100); ABG PCO2 35 MMHG (35-45); ABG PH 7.48 (7.37-7.43); ABG PO2 60 MMHG (79-93); ABG TCO2 27.1 MMOL/L (21.0-31.0)
[2021-05-09 07:28] LABS: ALLENS TEST YES-POS; INSPIRED O2 65%; PATIENT TEMP 36.7; VENTILATOR NO
--- NOTE | 2021-05-09 08:11 | Diagnostic Imaging Report ---
INDICATION: Covid pneumonia, dyspnea. COMPARISON: 05/08/2021 TECHNIQUE: Single radiograph of the chest dated 05/09/2021 FINDINGS: The cardiac silhouette is within normal limits in size. Pulmonary vasculature is obscured. Decreased lung volumes with significantly worsened extensive bilateral pulmonary infiltrates. No pleural effusion. No pneumothorax. No acute osseous abnormality. IMPRESSION: Decreased lung volumes with significantly worsened severe bilateral pulmonary infiltrates, likely related to pneumonia. Dictated by: Dictated on workstation # [id number]
[2021-05-09] MEDS ORDERED: KCL 10 MEQ TAB (MICRO K) PO ONE (09:00)
[2021-05-09] MEDS: FINASTERIDE (PROSCAR) 5 MG TAB PO SCH (09:11)
[2021-05-09] MEDS: ENOXAPARIN 40 MG/0.4 ML (LOVENOX) SYR SC SCH (09:11)
[2021-05-09] MEDS: NICOTINE 21 MG (NICODERM) PATCH TD PRN (09:12)
[2021-05-09] MEDS ORDERED: LISI1TAB48 PO (12:27)
[2021-05-09] MEDS ORDERED: TERA5CAP10 PO (12:27)
[2021-05-09] MEDS ORDERED: IBUP-2473 PO (12:27)
[2021-05-09] MEDS ORDERED: LYSI500T10 PO (12:27)
[2021-05-09] MEDS ORDERED: ASCO-262 PO (12:27)
[2021-05-09] MEDS ORDERED: OMEG-160 PO (12:27)
[2021-05-09] MEDS ORDERED: ROSU40TA23 PO (12:27)
[2021-05-09] MEDS ORDERED: CHOL20003 PO (12:27)
[2021-05-09] MEDS ORDERED: ZINC50TA58 PO (12:27)
[2021-05-09] MEDS ORDERED: FINA5TAB6 PO (12:27)
[2021-05-09] MEDS ORDERED: UBID100C44 PO (12:27)
[2021-05-09] MEDS: RT--FLUTICASONE/SALMETEROL 113-14 (AIRDUO RespiCLICK) IH SCH ×2 (15:44→22:06)
[2021-05-10] VITALS (7 sets, daily range): BP systolic 119–194; BP diastolic 56–88
[2021-05-10] MEDS: RT-ALBUTEROL HFA 8.5 GM INHALER IH SCH ×4 (02:53→22:39)
[2021-05-10] MEDS ORDERED: IBUPROFEN TABLET 200 MG TAB PO PRN (05:15)
[2021-05-10] MEDS: KCL 10 MEQ TAB (MICRO K) PO SCH (06:19)
--- NOTE | 2021-05-10 06:43 | Progress Note - Hospitalist ---
Subjective HPI/CC On Admission Date Seen by Provider: May 10, 2021 Time Seen by Provider: 10:00 CC: Acute hypoxic respiratory failure HPI: This is a 70yoWM clinic Pt of Dr. Salgado who currently smokes, who is unvaccinated and was diagnosed with Covid-19 pneumonia one week ago after being ill for one week before that. ABG showed significant hypoxemia. Pt was placed on Vapotherm and remains so at 35 liters and 60%. We will heplock his IV fluids, start Advair and will be closely monitoring patient. Subjective/Events-last exam Pt doing better On 20 liters and 50% Bowels are not moving so I will order meds Checked meds and labs Lungs sound much better Review of Systems General: Fatigue, Malaise Pulmonary: Dyspnea, Cough Focused Exam Lactate Level 05/08/21 17:55: Lactic Acid Level 1.38 Objective Exam Vital Signs Vital Signs Date Time Temp Pulse Resp B/P (MAP) Pulse Ox O2 Delivery O2 Flow Rate FiO2 05/11/21 02:47 96 High Flow N/C 6.00 05/10/21 23:30 36.8 66 20 119/56 (77) 05/10/21 09:33 60 Capillary Refill : Less Than 3 Seconds General Appearance: No Apparent Distress, WD/WN, Chronically ill Respiratory: No Accessory Muscle Use, No Respiratory Distress, Crackles Cardiovascular: Regular Rate, Rhythm Neurologic/Psychiatric: Alert, Oriented x3, No Motor/Sensory Deficits, Normal Mood/Affect Results/Procedures Lab Laboratory Tests 05/10/21 07:00 Patient resulted labs reviewed. Assessment/Plan Assessment and Plan Assess & Plan/Chief Complaint Assessment: Acute hypoxic respiratory failure COVID-19 pneumonia Exacerbation COPD Current smoker BPH Hypertension Plan: Supportive care Oxygen COVID-19 protocol DVT prophylaxis 05/10/2021: Much improved status Laxatives will be ordered Continue to wean O2 Diagnosis/Problems Diagnosis/Problems (1) Acute hypoxemic respiratory failure due to COVID-19 Status: Acute (2) Pneumonia due to COVID-19 virus Status: Acute (3) Acute and chronic respiratory failure (4) History of COPD Status: Acute (5) Hyponatremia Status: Acute KEON GAYLE DO May 10, 2021 06:43
[2021-05-10 07:17] LABS: BASOPHILS % (AUTO) 0 % (0-10); EOSINOPHILS % (AUTO) 0 % (0-10); HEMATOCRIT 37 % (40-54); HEMOGLOBIN 12.7 g/dL (13.3-17.7); LYMPHOCYTES # (AUTO) 0.9 10^3/uL (1.0-4.0); LYMPHOCYTES % (AUTO) 9 % (12-44); MEAN CORPUSCULAR HEMOGLOBIN 30 pg (25-34); MEAN CORPUSCULAR HGB CONC 34 g/dL (32-36); MEAN CORPUSCULAR VOLUME 86 fL (80-99); MEAN PLATELET VOLUME 10.6 fL (9.0-12.2); MONOCYTES # (AUTO) 0.8 10^3/uL (0.0-1.0); MONOCYTES % (AUTO) 8 % (0-12); NEUTROPHILS # (AUTO) 8.5 10^3/uL (1.8-7.8); NEUTROPHILS % (AUTO) 82 % (42-75); PLATELET COUNT 198 10^3/uL (130-400); WHITE BLOOD COUNT 10.3 10^3/uL (4.3-11.0)
[2021-05-10 07:43] LABS: BILIRUBIN,TOTAL 0.5 MG/DL (0.1-1.0); CALCIUM 8.7 MG/DL (8.5-10.1); CREATININE SERUM 0.81 MG/DL (0.60-1.30); POTASSIUM 3.8 MMOL/L (3.6-5.0); TOTAL PROTEIN 5.5 GM/DL (6.4-8.2)
[2021-05-10] MEDS ORDERED: FINASTERIDE (PROSCAR) 5 MG TAB PO SCH (09:00)
[2021-05-10] MEDS: VITAMIN D3 25 MCG (1,000 UNITS) TABLET PO SCH (09:19)
[2021-05-10] MEDS: ASCORBIC ACID (VIT C) 500 MG TABLET PO SCH (09:19)
[2021-05-10] MEDS: FINASTERIDE (PROSCAR) 5 MG TAB PO SCH (09:19)
[2021-05-10] MEDS: ZINC SULFATE 220 MG CAPSULE PO SCH (09:20)
[2021-05-10] MEDS: ENOXAPARIN 40 MG/0.4 ML (LOVENOX) SYR SC SCH (09:20)
[2021-05-10] MEDS: lisINopril 20 MG (PRINIVIL) TABLET PO SCH (09:20)
[2021-05-10] MEDS: OMEGA 3 (FISH OIL) 1000 MG CAP PO SCH (09:20)
[2021-05-10] MEDS: NON-FORMULARY MEDICATION 1 EA EA (Lysine (l-Lysine) 500 MG) PO SCH (09:21)
[2021-05-10] MEDS: NICOTINE PATCH REMOVAL TP SCH (09:21)
[2021-05-10] MEDS: NON-FORMULARY MEDICATION 1 EA EA (Ubidecarenone (Co Q-10) 100 MG) PO SCH (09:22)
[2021-05-10] MEDS: NICOTINE 21 MG (NICODERM) PATCH TD PRN (09:23)
[2021-05-10] MEDS: RT--FLUTICASONE/SALMETEROL 113-14 (AIRDUO RespiCLICK) IH SCH ×2 (09:37→22:39)
[2021-05-10] MEDS ORDERED: CALCIUM CARBONATE 500 MG (TUMS) TAB.CHEW PO PRN (13:00)
[2021-05-10] MEDS ORDERED: diphenhydrAMINE 25 MG TAB (BENADRYL) PO PRN (13:00)
[2021-05-10] MEDS ORDERED: ACETAMINOPHEN 500 MG TAB (TYLENOL) PO PRN (13:00)
[2021-05-10] MEDS ORDERED: LACTULOSE SYRUP 10GM/15ML (ENULOSE) 30ML UDC PO PRN (13:00)
[2021-05-10] MEDS: SENNA W/DOCUSATE (SENOKOT S) TABLET PO SCH ×2 (15:56→21:59)
[2021-05-10] MEDS: DOCUSATE SODIUM 100 MG (COLACE) CAP PO SCH ×2 (15:56→21:59)
[2021-05-10] MEDS: polyethylene glycoL POWDER 17 GM (MIRALAX) PACK PO SCH ×2 (15:56→22:00)
[2021-05-10] MEDS: TERAZOSIN 5 MG (HYTRIN) CAPSULE PO SCH (21:59)
[2021-05-10] MEDS: ROSUVASTATIN 20 MG (CRESTOR) TABLET PO SCH (22:00)
[2021-05-11] MEDS: RT-ALBUTEROL HFA 8.5 GM INHALER IH SCH ×4 (02:47→21:49)
[2021-05-11 04:50] VITALS: BP 162/79
[2021-05-11 05:53] LABS: BASOPHILS % (AUTO) 0 % (0-10); EOSINOPHILS % (AUTO) 0 % (0-10); HEMATOCRIT 38 % (40-54); HEMOGLOBIN 12.6 g/dL (13.3-17.7); LYMPHOCYTES # (AUTO) 0.9 10^3/uL (1.0-4.0); LYMPHOCYTES % (AUTO) 10 % (12-44); MEAN CORPUSCULAR HEMOGLOBIN 29 pg (25-34); MEAN CORPUSCULAR HGB CONC 33 g/dL (32-36); MEAN CORPUSCULAR VOLUME 87 fL (80-99); MEAN PLATELET VOLUME 10.7 fL (9.0-12.2); MONOCYTES # (AUTO) 0.8 10^3/uL (0.0-1.0); MONOCYTES % (AUTO) 8 % (0-12); NEUTROPHILS # (AUTO) 7.7 10^3/uL (1.8-7.8); NEUTROPHILS % (AUTO) 80 % (42-75); PLATELET COUNT 214 10^3/uL (130-400); WHITE BLOOD COUNT 9.6 10^3/uL (4.3-11.0)
[2021-05-11 06:05] LABS: POTASSIUM 4.1 MMOL/L (3.6-5.0)
[2021-05-11 06:06] LABS: CALCIUM 8.5 MG/DL (8.5-10.1)
[2021-05-11 06:07] LABS: TOTAL PROTEIN 5.5 GM/DL (6.4-8.2)
[2021-05-11 06:09] LABS: BILIRUBIN,TOTAL 0.6 MG/DL (0.1-1.0)
[2021-05-11 06:11] LABS: CREATININE SERUM 0.8 MG/DL (0.60-1.30)
[2021-05-11] MEDS: KCL 10 MEQ TAB (MICRO K) PO SCH (06:19)
[2021-05-11 07:57] VITALS: BP 153/76
[2021-05-11] MEDS: RT--FLUTICASONE/SALMETEROL 113-14 (AIRDUO RespiCLICK) IH SCH ×2 (08:22→21:50)
[2021-05-11] MEDS: DOCUSATE SODIUM 100 MG (COLACE) CAP PO SCH ×2 (08:54→21:31)
[2021-05-11] MEDS: SENNA W/DOCUSATE (SENOKOT S) TABLET PO SCH ×2 (08:54→21:31)
[2021-05-11] MEDS: FINASTERIDE (PROSCAR) 5 MG TAB PO SCH (08:54)
[2021-05-11] MEDS: VITAMIN D3 25 MCG (1,000 UNITS) TABLET PO SCH (08:54)
[2021-05-11] MEDS: ASCORBIC ACID (VIT C) 500 MG TABLET PO SCH (08:54)
[2021-05-11] MEDS: ZINC SULFATE 220 MG CAPSULE PO SCH (08:54)
[2021-05-11] MEDS: OMEGA 3 (FISH OIL) 1000 MG CAP PO SCH (08:54)
[2021-05-11] MEDS: lisINopril 20 MG (PRINIVIL) TABLET PO SCH (08:54)
[2021-05-11] MEDS: ENOXAPARIN 40 MG/0.4 ML (LOVENOX) SYR SC SCH (08:55)
[2021-05-11] MEDS: NON-FORMULARY MEDICATION 1 EA EA (Lysine (l-Lysine) 500 MG) PO SCH (08:55)
[2021-05-11] MEDS: polyethylene glycoL POWDER 17 GM (MIRALAX) PACK PO SCH ×2 (08:56→21:31)
[2021-05-11] MEDS: NON-FORMULARY MEDICATION 1 EA EA (Ubidecarenone (Co Q-10) 100 MG) PO SCH (08:56)
[2021-05-11] MEDS: NICOTINE PATCH REMOVAL TP SCH (08:58)
[2021-05-11 11:45] VITALS: BP 159/88
--- NOTE | 2021-05-11 12:04 | Progress Note - Hospitalist ---
Subjective HPI/CC On Admission Date Seen by Provider: May 11, 2021 Time Seen by Provider: 11:30 CC: Acute hypoxic respiratory failure HPI: This is a 70yoWM clinic Pt of Dr. Salgado who currently smokes, who is unvaccinated and was diagnosed with Covid-19 pneumonia one week ago after being ill for one week before that. ABG showed significant hypoxemia. Pt was placed on Vapotherm and remains so at 35 liters and 60%. We will heplock his IV fluids, start Advair and will be closely monitoring patient. Subjective/Events-last exam Pt doing much better Weaning off oxygen from 6 to 5 now Likely will go home tomorrow Updated patient Pt has no issues Review of Systems General: Fatigue Pulmonary: Dyspnea Focused Exam Lactate Level Objective Exam Vital Signs Vital Signs Date Time Temp Pulse Resp B/P (MAP) Pulse Ox O2 Delivery O2 Flow Rate FiO2 05/12/21 02:53 93 High Flow N/C 6.00 05/12/21 00:00 36.0 58 20 160/79 (106) 05/10/21 09:33 60 Capillary Refill : Less Than 3 Seconds General Appearance: No Apparent Distress, WD/WN, Chronically ill Respiratory: Lungs Clear, Normal Breath Sounds, Crackles Cardiovascular: Regular Rate, Rhythm Neurologic/Psychiatric: Alert, Oriented x3, No Motor/Sensory Deficits, Normal Mood/Affect Results/Procedures Lab Patient resulted labs reviewed. Assessment/Plan Assessment and Plan Assess & Plan/Chief Complaint Assessment: Acute hypoxic respiratory failure COVID-19 pneumonia Exacerbation COPD Current smoker BPH Hypertension Plan: Supportive care Oxygen COVID-19 protocol DVT prophylaxis 05/10/2021: Much improved status Laxatives will be ordered Continue to wean O2 05/11/2021: Wean oxygen down Discharge plan for tomorrow Diagnosis/Problems Diagnosis/Problems (1) Acute hypoxemic respiratory failure due to COVID-19 Status: Acute (2) Pneumonia due to COVID-19 virus Status: Acute (3) Acute and chronic respiratory failure (4) History of COPD Status: Acute (5) Hyponatremia Status: Acute KEON GAYLE DO May 11, 2021 12:04
[2021-05-11 15:50] VITALS: BP 154/83
[2021-05-11 20:00] VITALS: BP 176/82
[2021-05-11] MEDS: ROSUVASTATIN 20 MG (CRESTOR) TABLET PO SCH (21:31)
[2021-05-11] MEDS: TERAZOSIN 5 MG (HYTRIN) CAPSULE PO SCH (21:35)
[2021-05-12] VITALS: BP 160/79
[2021-05-12] MEDS: RT-ALBUTEROL HFA 8.5 GM INHALER IH SCH ×2 (02:53→07:33)
[2021-05-12] MEDS: KCL 10 MEQ TAB (MICRO K) PO SCH (06:32)
[2021-05-12 06:55] LABS: BASOPHILS % (AUTO) 0 % (0-10); EOSINOPHILS % (AUTO) 0 % (0-10); HEMATOCRIT 38 % (40-54); LYMPHOCYTES # (AUTO) 1.4 10^3/uL (1.0-4.0); LYMPHOCYTES % (AUTO) 13 % (12-44); MEAN CORPUSCULAR HEMOGLOBIN 30 pg (25-34); MEAN CORPUSCULAR HGB CONC 34 g/dL (32-36); MEAN CORPUSCULAR VOLUME 87 fL (80-99); MEAN PLATELET VOLUME 10.2 fL (9.0-12.2); MONOCYTES # (AUTO) 0.9 10^3/uL (0.0-1.0); MONOCYTES % (AUTO) 9 % (0-12); NEUTROPHILS # (AUTO) 7.4 10^3/uL (1.8-7.8); NEUTROPHILS % (AUTO) 74 % (42-75); PLATELET COUNT 226 10^3/uL (130-400); WHITE BLOOD COUNT 10.1 10^3/uL (4.3-11.0)
[2021-05-12 07:10] LABS: ALBUMIN 2.9 GM/DL (3.2-4.5)
[2021-05-12 07:12] LABS: CALCIUM 8.3 MG/DL (8.5-10.1)
[2021-05-12 07:13] LABS: TOTAL PROTEIN 5.4 GM/DL (6.4-8.2)
[2021-05-12 07:15] LABS: BILIRUBIN,TOTAL 0.6 MG/DL (0.1-1.0)
[2021-05-12 07:16] LABS: CREATININE SERUM 0.78 MG/DL (0.60-1.30)
[2021-05-12] MEDS: RT--FLUTICASONE/SALMETEROL 113-14 (AIRDUO RespiCLICK) IH SCH (07:33)
[2021-05-12 08:04] VITALS: BP 176/84
[2021-05-12] MEDS: ASCORBIC ACID (VIT C) 500 MG TABLET PO SCH (08:39)
[2021-05-12] MEDS: VITAMIN D3 25 MCG (1,000 UNITS) TABLET PO SCH (08:39)
[2021-05-12] MEDS: DOCUSATE SODIUM 100 MG (COLACE) CAP PO SCH (08:39)
[2021-05-12] MEDS: polyethylene glycoL POWDER 17 GM (MIRALAX) PACK PO SCH (08:39)
[2021-05-12] MEDS: lisINopril 20 MG (PRINIVIL) TABLET PO SCH (08:39)
[2021-05-12] MEDS: SENNA W/DOCUSATE (SENOKOT S) TABLET PO SCH (08:39)
[2021-05-12] MEDS: OMEGA 3 (FISH OIL) 1000 MG CAP PO SCH (08:39)
[2021-05-12] MEDS: ENOXAPARIN 40 MG/0.4 ML (LOVENOX) SYR SC SCH (08:39)
[2021-05-12] MEDS: FINASTERIDE (PROSCAR) 5 MG TAB PO SCH (08:39)
[2021-05-12] MEDS: ZINC SULFATE 220 MG CAPSULE PO SCH (08:44)
[2021-05-12] MEDS: NICOTINE PATCH REMOVAL TP SCH (09:00)
[2021-05-12] MEDS ORDERED: RT-ALBUINH IH (12:19)
[2021-05-12] MEDS ORDERED: DEXA6TAB6 PO (12:19)
--- NOTE | 2021-05-12 12:21 | Discharge Summary ---
Discharge Summary Hospital Course Was the Problem List Reviewed?: Yes Problems/Dx: (1) Acute hypoxemic respiratory failure due to COVID-19 Status: Acute (2) Pneumonia due to COVID-19 virus Status: Acute (3) Acute and chronic respiratory failure (4) History of COPD Status: Acute (5) Hyponatremia Status: Acute Hospital Course Date of Admission: May 08, 2021 at 20:15 Admission Diagnosis : Family Physician/Provider: Som Salgado MD Date of Discharge: 05/12/21 Discharge Diagnosis: COVID-19 pneumonia, acute hypoxic respiratory failure, exacerbation of COPD, current smoker, hyponatremia Hospital Course: Patient had a short hospital course after he was admitted for COVID-19 pneumonia with acute hypoxic respiratory failure. He was on day #8 of illness. He had slow progress but ultimately responded to IV steroids and oxygen supplementation and was discharged improved condition at 6 L continuous. Labs and Pending Lab Test: Laboratory Tests 05/12/21 06:45: White Blood Count 10.1, Red Blood Count 4.41, Hemoglobin 13.0L, Hematocrit 38L, Mean Corpuscular Volume 87, Mean Corpuscular Hemoglobin 30, Mean Corpuscular Hemoglobin Concent 34, Red Cell Distribution Width 13.3, Platelet Count 226, Mean Platelet Volume 10.2, Immature Granulocyte % (Auto) 4, Neutrophils (%) (Auto) 74, Lymphocytes (%) (Auto) 13, Monocytes (%) (Auto) 9, Eosinophils (%) (Auto) 0, Basophils (%) (Auto) 0, Neutrophils # (Auto) 7.4, Lymphocytes # (Auto) 1.4, Monocytes # (Auto) 0.9, Eosinophils # (Auto) 0.0, Basophils # (Auto) 0.0, Immature Granulocyte # (Auto) 0.4H, Sodium Level 135, Potassium Level 4.0, Chloride Level 103, Carbon Dioxide Level 25, Anion Gap 7, Blood Urea Nitrogen 19H, Creatinine 0.78, Estimat Glomerular Filtration Rate 98, BUN/Creatinine Ratio 24, Glucose Level 80, Calcium Level 8.3L, Corrected Calcium 9.2, Total Bilirubin 0.6, Aspartate Amino Transf (AST/SGOT) 89H, Alanine Aminotransferase (ALT/SGPT) 178H, Alkaline Phosphatase 65, Total Protein 5.4L, Albumin 2.9L Microbiology 05/08/21 Blood Culture - Preliminary, Resulted No growth Home Meds Active Decadron (Dexamethasone) 6 Mg Tablet 6 Mg PO DAILY Proair Hfa (Albuterol Sulfate) 1 Puff Puff 2 Puff IH Q4H 1 PUFF = 90 MCG Reported l-Lysine (Lysine) 500 Mg Tablet 500 Mg PO DAILY Ibuprofen 200 Mg Tablet 400-600 Mg PO Q8H PRN Co Q-10 (Ubidecarenone) 100 Mg Capsule 100 Mg PO DAILY Fish Oil 1,000 mg Softgel ([place]-3/Dha/Epa/Fish Oil) 1 Each Capsule 1 Each PO DAILY Vitamin C (Ascorbate Calcium) 500 Mg Tablet 500 Mg PO DAILY Zinc 50 Mg Tablet 50 Mg PO DAILY Vitamin D3 (Cholecalciferol (Vitamin D3)) 50 Mcg Capsule 50 Mcg PO DAILY Lisinopril-Hctz 20-25 mg Tab (Lisinopril/Hydrochlorothiazide) 1 Each Tablet 1 Ea PO DAILY Rosuvastatin Calcium 40 Mg Tablet 40 Mg PO HS Finasteride 5 Mg Tablet 5 Mg PO DAILY Terazosin HCl 5 Mg Capsule 5 Mg PO HS Assessment/Pt Instructions PCP in 1 week Discharge Planning: <30 minutes discharge planning Discharge Instructions Discharge Diet: No Restrictions Discharge Physical Examination Vital Signs Vital Signs Date Time Temp Pulse Resp B/P (MAP) Pulse Ox O2 Delivery O2 Flow Rate FiO2 05/12/21 08:04 36.5 59 20 176/84 (114) 91 High Flow N/C 5.00 05/10/21 09:33 60 General Appearance: No Apparent Distress, WD/WN, Chronically ill Respiratory: Lungs Clear, Normal Breath Sounds Allergies: Coded Allergies: No Known Drug Allergies (Unverified , 07/31/13) Discharge Summary Date of Admission May 08, 2021 at 20:15 Date of Discharge Discharge Date: May 12, 2021 Admission Diagnosis Assessment: Acute hypoxic respiratory failure COVID-19 pneumonia Exacerbation COPD Current smoker BPH Hypertension Plan: Supportive care Oxygen COVID-19 protocol DVT prophylaxis Discharge Diagnosis Assessment: Acute hypoxic respiratory failure COVID-19 pneumonia Exacerbation COPD Current smoker BPH Hypertension Plan: Supportive care Oxygen COVID-19 protocol DVT prophylaxis 05/10/2021: Much improved status Laxatives will be ordered Continue to wean O2 05/11/2021: Wean oxygen down Discharge plan for tomorrow (1) Acute hypoxemic respiratory failure due to COVID-19 Status: Acute (2) Pneumonia due to COVID-19 virus Status: Acute (3) Acute and chronic respiratory failure (4) History of COPD Status: Acute (5) Hyponatremia Status: Acute KEON GAYLE DO May 12, 2021 12:21
== END 2021-05-12 14:20 | disposition home or self-care (01) | DRG 177 ==
LOC: EDUNIT# 17:10 → ER 17:11 → 4TH 20:15
PROVIDERS: ADMIT Internal Medicine; ATTEND Internal Medicine
DX: U07.1 COVID-19 (principal); J12.82 Pneumonia due to coronavirus disease 2019; J96.01 Acute respiratory failure with hypoxia; J44.0 Chronic obstructive pulmonary disease with (acute) lower respiratory infection; J44.1 Chronic obstructive pulmonary disease with (acute) exacerbation; E87.1 Hypo-osmolality and hyponatremia; I10 Essential (primary) hypertension; F17.210 Nicotine dependence, cigarettes, uncomplicated; N40.0 Benign prostatic hyperplasia without lower urinary tract symptoms; K21.9 Gastro-esophageal reflux disease without esophagitis; Z73.0 Burn-out
CPT/HCPCS: 36415; 71045; 71275; 80048; 80053; 80076; 82805; 83605; 84145; 85007; 85025; 85027; 85379; 85610; 85730; 86141; 87040; 94640; 94664; 94760; 94761